=== PATIENT | female | born 1970 | race Caucasian/White ===

== ENCOUNTER 2018-08-27 08:34 | Emergency (ER) | payer OTHER ==
[2018-08-27 08:47] VITALS: Ht 157.5 cm
[2018-08-27 10:14] VITALS: BP 151/64
== END 2018-08-27 10:15 | disposition home or self-care (01) ==
LOC: ED 08:34
DX: G89.29 Other chronic pain (principal); M54.5 Low back pain; I10 Essential (primary) hypertension
CPT/HCPCS: J1885